=== PATIENT | female | born 1990 | race Caucasian/White ===

== ENCOUNTER 2016-06-16 07:32 | Emergency (ER) | payer OTHER ==
[~2016-06-16] VITALS: Ht 170.2 cm; Wt 109.5 kg
[2016-06-16 07:34] VITALS: BP 143/99; PULSE 77; RESP 16; O2SAT 97
--- NOTE | 2016-06-16 07:55 | ED.REPORT ---
HPI-Preg Under 20 Weeks Date of Service Jun 16, 2016 ED Provider: Dr. Reynoso Pt is a 25 y/o 6 wk female who is A1, presenting to the ED with her c/o abnormal vaginal bleeding (less than a period) onset about 2 days ago. She had some light bleeding with cramping yesterday, and this morning noticed increased blood in the toilet. She had a miscarriage once before with similar symptoms. She reports cold-like symptoms with a mild fever last week. She denies dysuria, urinary frequency, recent intercourse, vaginal insertion, heavy lifting, history of STD. Her HCG level was 356 1 week ago. Blood type: AB+ Nursing Notes Stated Complaint: 6 WKS /BLEEDING Chief Complaint: & Delivery Nursing Notes Reviewed: Yes Allergies: Coded Allergies: Sulfa (Sulfonamide Antibiotics) (Verified Allergy, Severe, Rash,Itching,, 06/16/16) codeine (Verified Allergy, Severe, Rash,Itching,, 06/16/16) General Time Seen by Provider: 07:56 Chief Complaint Vaginal bleeding Context: : Known 1st trim Hx Obtained From: Patient Arrived By: Walk-in Onset Occurred: 2 days ago Symptom Duration: Since onset Location: : Suprapubic Quality: Cramping Severity: Current: Mild Severity: Maximum: Mild Similar Sx Previous: Yes Past Medical History Past Medical History Notes: Blood type: AB+ Past Medical History Hx miscarriage Septal defect - s/p repair at age 3 Past Surgical History Open heart surgery at age 3 Smoking History Unknown if Ever Smoker Social History Alcohol Use: Denies alcohol use Drug Use: Denies drug use Ambulatory Status Independent Review of Systems GI: Reports: Abdominal pain, Denies: Nausea, Vomiting Female: Reports: Vaginal bleeding - abnl, Denies: Dysuria, Urinary frequency, Urinary urgency Complete sys rev & neg: except as marked. Physical Exam Initial Vital Signs Vital Signs (First) Date Time Temp Pulse Resp B/P Pulse Ox O2 Delivery O2 Flow Rate FiO2 06/16/16 07:34 36.4 77 16 143/99 97 Room Air Initial VS: Reviewed, Vital signs normal Head / Eyes: Atraumatic, Normocephalic, PERRL ENT: Mucous membranes moist, Conjunctiva normal, No scleral icterus Neck: Supple, Full range of motion Respiratory: Breath sounds normal, Clear to auscultation, No respiratory distress Cardiovascular: Regular rate & rhythm, Heart sounds normal, Intact distal pulses Extremities: Vascular intact, Neuro intact, No swelling, No tenderness Skin: Warm, Dry, No cyanosis Neurologic: Alert, Oriented, Nonfocal Psychiatric: Mood/affect normal, Behavior normal, Normal thought content General/Constitutional: Awake, Alert, No acute distress, Cooperative, Not toxic appearing Appearance / Presentation: Positive: Obese Abdomen: Atraumatic, Soft, No guarding, No rebound Tenderness/Guarding/Rebound: Positive: Tender LLQ... (Mild) Female Genitourinary: Exam deferred Interpretation & Diagnostics Lab Results Interpretation Result Diagram: 06/16/16 0848 Test 06/16/16 08:07 06/16/16 08:48 Hold Urine Received (Received) White Blood Count 13.2th/mm3 (3.8-10.1) Red Blood Count 4.77mil/mm3 (3.90-5.20) Hemoglobin 12.5g/dL (12.0-15.6) Hematocrit 39.0% (35.0-46.0) Mean Corpuscular Volume 81.8fL (81-100) Mean Corpuscular Hemoglobin 26.2pg (27.0-35.0) Mean Corpuscular Hemoglobin Concent 32.1% (32.0-37.0) Red Cell Distribution Width 16.3% (12.3-15.4) Platelet Count 314bil/L (150-400) HCG Beta Subunit 975.1mIU/mL Hold Lentz Top Tube Received (Received) Lab Results Interpretation: Urine preg positive. After reviewing outpatient clinic records, prior HCG levels: 06/09 - 356 06/14 - US Focused OB IMPRESSION: 1. Ovaries are nonvisualized. No adnexal abnormalities seen within limitation of the exam, limited by body habitus and bowel gas. 2. Uterus is unremarkable. No evidence of intrauterine gestation. Followup with serial hCG titers and repeat imaging as needed. Dictated by: Jaiden Sandoval M.D. on 06/16/2016 at 9:35 Approved by: Jaiden Sandoval M.D. on 06/16/2016 at 9:35 Exam Performed by: Allied health pract Exam Interpreted by: Radiologist Re-Eval/Medical Decision Med Decision/Clinical Course Early bleeding, question whether this is threatened miscarriage no obvious IUP however no signs of ectopic and hCG is low. Bleeding sounds minimal, patient is agreeable for discharge and close follow-up with DRAPERY COUNSELOR versus return to the ER. Extensive return precautions given. Re-Evaluation/Progress : Time of Eval: 09:53 Re-Evaluation/Progress Note: Pt rechecked. Discussed misscarriages. Informed pt of plan for treatment. Pt understands and agrees with plan for treatment. F/U and RTER warnings given. All questions addressed. Counseled Regarding: Diagnosis, Lab results, Need for follow-up, When/why to return to ED Discharge & Departure Primary Impression: Threatened miscarriage in early Disposition: Home Discharge Condition All VS Reviewed: Yes Condition: Stable Additional Instructions: Your quantitative hCG today was 975. Your symptoms are consistent with a threatened miscarriage in early . You should contact your DRAPERY COUNSELOR today for a follow-up appointment and repeat quantitative hCG testing. Return to ER for heavy vaginal bleeding, high fever, worsening or severe pain or any other concerns. Referrals: [facility] (PCP) Trey Valero MD Attestation Portions of this note were transcribed by Lance Rodas. I, Dr. Reynoso personally performed the history, physical exam and medical decision-making; I reviewed and confirmed the accuracy of the information in the transcribed note. Signed by Rena Barker, 06/16/16 - [id number] copies to: Trey Valero MD, Timloraine Moses Jun 16, 2016 07:55 LANCE RODAS Jun 16, 2016 07:59
[2016-06-16 08:56] LABS: Mean Corpuscular Hemoglobin 26.2 pg (27.0-35.0); Mean Corpuscular Volume 81.8 fL (81-100)
--- NOTE | 2016-06-16 09:37 | DRSVH ---
PROCEDURE: US PELVIC SONOGRAM + TRANSVAGINAL SONOGRAM INDICATIONS: early bleeding TECHNIQUE: Real-time scanning was performed of the pelvic organs, with image documentation. Additional endovagi nal scanning was necessary due to incomplete visualization of the adnexal and endometrial structures by transabdominal scanning. COMPARISON: None. FINDINGS: (orthogonal measurements) Uterus size: 4.6 x 5.7 x 8.3 Endometrium thickness: 15.2 Right ovary size: Nonvisualized Left ovary size: Nonvisualized Transabdominal scanning: Limited scanning through the kidneys shows no hydronephrosis. No pathologi c free abdominal or pelvic fluid. Endovaginal scanning: Uterus: Uterus is normal in size and appearance. Endometrium is within normal physiologic limits. N o gestational sac seen. Ovaries: Within normal physiologic limits. IMPRESSION: 1. Ovaries are nonvisualized. No adnexal abnormalities seen within limitation of the exam, limited by body habitus and bowel gas. 2. Uterus is unremarkable. No evidence of intrauterine gestation. Followup with serial hCG titers and repeat imaging as needed. Dictated by: Jaiden Sandoval M.D. on 06/16/2016 at 9:35 Approved by: Jaiden Sandoval M.D. on 06/16/2016 at 9:35
[2016-06-16 10:12] VITALS: BP 141/82; PULSE 89; RESP 15; O2SAT 95
== END 2016-06-16 10:13 | disposition home or self-care (01) ==
LOC: SED 07:32
DX: O20.0 Threatened abortion (principal); Z3A.01 Less than 8 weeks gestation of pregnancy; Z88.2 Allergy status to sulfonamides; Z88.5 Allergy status to narcotic agent